=== PATIENT | female | born 1975 | race Caucasian/White ===

== ENCOUNTER 2017-04-15 14:30 | Emergency (ER) | payer SELFPAY ==
--- NOTE | 2017-04-15 16:07 | ER Document Report ---
ED Medical Screen (RME) - General Chief Complaint: Headache Stated Complaint: HEADACHE Time Seen by Provider: 04/15/17 15:52 Mode of Arrival: Ambulatory Information source: Patient Notes: Pt has hard "balls" to the left side of her neck that hurt that popped up a few days ago. 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 no fever/chills, sick symptoms otherwise TRAVEL OUTSIDE OF THE [place] IN LAST 30 DAYS: No - Related Data Allergies/Adverse Reactions: Penicillins Allergy (Intermediate, Verified 04/15/17 14:31) Rash Past Medical History - General Information source: Patient - Past Medical History Cardiac Medical History: Denies: Hx Coronary Artery Disease, Hx Heart Attack, Hx Hypertension, Hx Pulmonary Embolism Pulmonary Medical History: Reports: Hx Asthma, Hx Bronchitis - Denies: Hx COPD, Hx Pneumonia, Hx Respiratory Failure, Hx Sleep Apnea, Hx Tuberculosis Neurological Medical History: Denies: Hx Cerebrovascular Accident, Hx Seizures Renal/ Medical History: Reports: Hx Ovarian Cysts - on left ovary. Denies: Hx End Stage Renal Disease, Hx Kidney Stones, Hx Peritoneal Dialysis, Hx Pelvic Inflammatory Disease Malignancy Medical History: Reports: Hx Cervical Cancer - did LEEP procedure. Denies: Hx Breast Cancer, Hx Lung Cancer, Hx Ovarian Cancer GI Medical History: Reports: Hx Gastroesophageal Reflux Disease. Denies: Hx Crohn's Disease, Hx Hiatal Hernia, Hx Irritable Bowel, Hx Liver Failure, Hx Pancreatitis, Hx Ulcer Musculoskeltal Medical History: Denies Hx Arthritis Psychiatric Medical History: Reports: Hx Depression, Hx Post Traumatic Stress Disorder - childhood trauma Denies: Hx Bipolar Disorder, Hx Schizophrenia Past Surgical History: Reports: Hx Hysterectomy, Hx Tubal Ligation. Denies: Hx Appendectomy, Hx Bowel Surgery, Hx Section, Hx Cholecystectomy, Hx Colostomy, Hx Coronary Artery Bypass Graft, Hx Gastric Bypass Surgery, Hx Herniorrhaphy, Hx Mastectomy, Hx Pacemaker, Hx Tonsillectomy - Immunizations Hx Diphtheria, Pertussis, Tetanus Vaccination: Yes - 2005 Review of Systems - Review of Systems Gastrointestinal: See HPI Skin: See HPI Physical Exam - Vital signs Vitals: Temp Pulse Resp BP Pulse Ox 99.2 F 86 12 144/92 H 97 04/15/17 14:37 04/15/17 14:37 04/15/17 14:37 04/15/17 14:37 04/15/17 14:37 - Notes Notes: General: NAD Skin: enlarged tender LAD to left neck, post auricular and cervical Course - Vital Signs Vital signs: Temp Pulse Resp BP Pulse Ox 99.2 F 86 12 144/92 H 97 04/15/17 14:37 04/15/17 14:37 04/15/17 14:37 04/15/17 14:37 04/15/17 14:37
[2017-04-15 16:48] LABS: ABSOLUTE EOSINOPHILS # (AUTO) 0.3 10^3/uL (0.0-0.6); ABSOLUTE LYMPHOCYTES (AUTO) 2.2 10^3/uL (0.5-4.7); ABSOLUTE MONOCYTES (AUTO) 0.5 10^3/uL (0.1-1.4); ABSOLUTE NEUT (AUTO) 5.3 10^3/uL (1.7-8.2); BASOPHILS % (AUTO) 0.6 % (0-2); EOSINOPHILS % (AUTO) 3.2 % (0-6); HEMATOCRIT 43.1 % (36.0-47.0); HEMOGLOBIN 14.8 g/dL (12.0-15.5); LYMPHOCYTES % (AUTO) 26.7 % (13-45); MEAN CORPUSCULAR HEMOGLOBIN 31.9 pg (27.0-33.4); MEAN CORPUSCULAR HGB CONC 34.3 g/dL (32.0-36.0); MEAN CORPUSCULAR VOLUME 93 fl (80-97); MONOCYTES % (AUTO) 5.5 % (3-13); PLATELET COUNT 284 10^3/uL (150-450); RED BLOOD COUNT 4.63 10^6/uL (3.72-5.28); RED CELL DISTRIBUTION WIDTH 13.3 % (11.5-14.0); TOTAL CELLS COUNTED % (AUTO) 100 %; WHITE BLOOD COUNT 8.4 10^3/uL (4.0-10.5)
[2017-04-15 16:57] LABS: APPEARANCE,URINE CLEAR; BILIRUBIN,URINE NEGATIVE (NEGATIVE); COLOR,URINE STRAW; GLUCOSE, URINE NEGATIVE (NEGATIVE); KETONES,URINE NEGATIVE (NEGATIVE); LEUKOCYTE ESTERASE,URINE NEGATIVE (NEGATIVE); NITRITE,URINE NEGATIVE (NEGATIVE); PROTEIN,URINE NEGATIVE (NEGATIVE); URINE SPECIFIC GRAVITY 1.004; UROBILINOGEN,URINE NEGATIVE mg/dL (<2.0)
[2017-04-15 17:07] LABS: ALANINE AMINOTRANSFERASE 19 U/L (9-52); ALBUMIN 4.8 g/dL (3.5-5.0); ALKALINE PHOSPHATASE 54 U/L (38-126); ANION GAP 13 (5-19); ASPARTATE AMINO TRANSFERASE 14 U/L (14-36); BILIRUBIN,DIRECT 0.3 mg/dL (0.0-0.4); BILIRUBIN,TOTAL 0.3 mg/dL (0.2-1.3); BLOOD UREA NITROGEN 9 mg/dL (7-20); CALCIUM 10.1 mg/dL (8.4-10.2); CARBON DIOXIDE 25 mmol/L (22-30); CHLORIDE 105 mmol/L (98-107); GLUCOSE 84 mg/dL (75-110); POTASSIUM 3.9 mmol/L (3.6-5.0); SODIUM 142.7 mmol/L (137-145)
--- NOTE | 2017-04-15 18:56 | ER Document Report ---
ED General - General Mode of Arrival: Ambulatory Information source: Patient TRAVEL OUTSIDE OF THE [place] IN LAST 30 DAYS: No <LOLY CHAUDHARI - Last Filed: 04/15/17 18:38> <DYLON PATRICK - Last Filed: 04/15/17 20:13> - General Chief Complaint: Headache Stated Complaint: HEADACHE Time Seen by Provider: 04/15/17 15:52 Notes: Patient is a 42-year-old female who presents to the ER today for 3-4 days of swollen "hard balls" to the left side of her neck that are painful. Patient states that prior to them starting she did have some vomiting around [place] but that that has subsided and she no longer has any nausea or vomiting. She denies that she had any fever, chills or diarrhea during that episode. Patient states that over the past 3-4 months she has not had any type of appetite and has lost some weight. She does not know how much weight she is lost. She also states that she recently had a melanoma removed from her right upper back. She has no other history of cancer or immune deficiencies. She denies cough, runny nose or other sick symptoms at this time. (LOLY CHAUDHARI) - Related Data Allergies/Adverse Reactions: Penicillins Allergy (Intermediate, Verified 04/15/17 14:31) Rash Past Medical History - General Information source: Patient - Social History Smoking Status: Current Every Day Smoker Chew tobacco use (# tins/day): No Frequency of alcohol use: Rare Drug Abuse: None Family History: Reviewed & Not Pertinent Patient has suicidal ideation: No Patient has homicidal ideation: No - Past Medical History Cardiac Medical History: Denies: Hx Coronary Artery Disease, Hx Heart Attack, Hx Hypertension, Hx Pulmonary Embolism Pulmonary Medical History: Reports: Hx Asthma, Hx Bronchitis - '09 Denies: Hx COPD, Hx Pneumonia, Hx Respiratory Failure, Hx Sleep Apnea, Hx Tuberculosis Neurological Medical History: Denies: Hx Cerebrovascular Accident, Hx Seizures Renal/ Medical History: Reports: Hx Ovarian Cysts - on left ovary. Denies: Hx End Stage Renal Disease, Hx Kidney Stones, Hx Peritoneal Dialysis, Hx Pelvic Inflammatory Disease Malignancy Medical History: Reports: Hx Cervical Cancer - '04 did LEEP procedure. Denies: Hx Breast Cancer, Hx Lung Cancer, Hx Ovarian Cancer GI Medical History: Reports: Hx Gastroesophageal Reflux Disease. Denies: Hx Crohn's Disease, Hx Hiatal Hernia, Hx Irritable Bowel, Hx Liver Failure, Hx Pancreatitis, Hx Ulcer Musculoskeltal Medical History: Denies Hx Arthritis Psychiatric Medical History: Reports: Hx Depression, Hx Post Traumatic Stress Disorder - childhood trauma Denies: Hx Bipolar Disorder, Hx Schizophrenia Past Surgical History: Reports: Hx Hysterectomy, Hx Tubal Ligation. Denies: Hx Appendectomy, Hx Bowel Surgery, Hx Section, Hx Cholecystectomy, Hx Colostomy, Hx Coronary Artery Bypass Graft, Hx Gastric Bypass Surgery, Hx Herniorrhaphy, Hx Mastectomy, Hx Pacemaker, Hx Tonsillectomy - Immunizations Hx Diphtheria, Pertussis, Tetanus Vaccination: Yes - 2006 <LOLY CHAUDHARI - Last Filed: 04/15/17 18:38> Physical Exam <LOLY CHAUDHARI - Last Filed: 04/15/17 18:38> <DYLON PATRICK - Last Filed: 04/15/17 20:13> - Vital signs Vitals: Temp Pulse Resp BP Pulse Ox 99.2 F 86 12 144/92 H 97 04/15/17 14:37 04/15/17 14:37 04/15/17 14:37 04/15/17 14:37 04/15/17 14:37 - Notes Notes: PHYSICAL EXAMINATION: GENERAL: Well-appearing and in no acute distress. HEAD: Atraumatic, normocephalic. EYES: Pupils equal round and reactive to light, extraocular movements intact, sclera anicteric, conjunctiva are normal. ENT: ear canals without erythema or foreign body, TMs pearly amaro with good bony landmarks, nares patent, oropharynx clear without exudates. Moist mucous membranes. NECK: Normal range of motion, supple with postauricular, posterior cervical lymphadenopathy, tender to palpation LUNGS: CTAB and equal. No wheezes rales or rhonchi. HEART: Regular rate and rhythm without murmurs EXTREMITIES: Normal range of motion, no pitting edema. No cyanosis. NEUROLOGICAL: Cranial nerves grossly intact. Normal sensory/motor exams. PSYCH: Normal mood, normal affect. SKIN: Warm, Dry, normal turgor, no rashes or lesions noted (LOLY CHAUDHARI) Course - Laboratory Result Diagrams: 04/15/17 16:14 04/15/17 16:14 <LOLY CHAUDHARI - Last Filed: 04/15/17 18:38> - Laboratory Result Diagrams: 04/15/17 16:14 04/15/17 16:14 <DYLON PATRICK - Last Filed: 04/15/17 20:13> - Re-evaluation Re-evalutation: 04/15/17 18:55 Patient has normal lab work today with a normal white blood cell count. Patient is very concerned about why she has lymphadenopathy. CT soft tissue neck has been ordered at this time, but pt has not gone yet. Care will be handed over to Dylon Patrick PA-C to follow up on CT. (LOLY CHAUDHARI) 04/15/17 20:10 CT scan was unremarkable for any acute pathology, was possible suggestion of goiter. Recommend further evaluation with PCM with thyroid testing as well. Patient states that she is ready to go home. Patient is discharged in stable condition. Patient to monitor symptoms and return with any worsening symptoms. Recheck with your PCM in 3-5 days. (DYLON PATRICK) - Vital Signs Vital signs: Temp Pulse Resp BP Pulse Ox 98.5 F 70 16 141/98 H 99 04/15/17 19:09 04/15/17 19:09 04/15/17 19:09 04/15/17 19:09 04/15/17 19:09 Discharge <LOLY CHAUDHARI - Last Filed: 04/15/17 18:38> <DYLON PATRICK - Last Filed: 04/15/17 20:13> - Discharge Clinical Impression: LAD (lymphadenopathy) of left cervical region, Goiter Condition: Stable Disposition: HOME, SELF-CARE Additional Instructions: OTC meds as needed Tylenol/ibuprofen as needed Recheck with your PCM in 3-5 days for further evaluation and consideration of thyroid testing Consider consult with ENT Return to the ED with any worsening symptoms and/or development of fever, headache, chest pain, palpitations, syncope, shortness of breath, trouble breathing, abdominal pain, n/v/d, blood in stool/urine, loss of control of bowel /bladder, urinary retention, muscle weakness/paralysis, saddle anesthesia, numbness/tingling, or other worsening symptoms that are concerning to you. Forms: Elevated Blood Pressure Referrals: ANCA FIGUEROA DO [ASSOCIATE] - Follow up as needed
--- NOTE | 2017-04-15 19:11 | RADIOLOGY REPORT (SQ) ---
EXAM DESCRIPTION: CT SOFT TISSUE NECK WITH COMPLETED DATE/TIME: 04/15/2017 6:58 pm REASON FOR STUDY: edema left neck COMPARISON: None. TECHNIQUE: Post IV contrasted scanning from skull base through lung apices with review of bone, soft tissue and lung windows. Reconstructed coronal and sagittal MPR images reviewed. All images stored on PACS. All CT scanners at this facility use dose modulation, iterative reconstruction, and/or weight based d osing when appropriate to reduce radiation dose to as low as reasonably achievable (ALARA). [facility]: Dose Right [facility]: CareDose [facility]: Dose Right [facility]: Teradose 4D [facility]: [employer] CONTRAST TYPE AND DOSE: contrast/concentration: Isovue 370.00 mg/ml; Total Contrast Delivered: 75.0 ml; Total Saline Delivered: 25.2 ml RENAL FUNCTION: None required. The patient is less than 50 years old. RADIATION DOSE: CT Rad equipment meets quality standard of care and radiation dose reduction techniq ues were employed. CTDIvol: 11.8 mGy. DLP: 408 mGy-cm. . LIMITATIONS: None. FINDINGS: SKULL BASE: Intact. MAJOR SALIVARY GLANDS: No solid or cystic masses. No inflammatory changes. LYMPHADENOPATHY: No adenopathy. MUCOSAL MASSES OR ASYMMETRY: No mucosal masses or asymmetry. LARYNX/CORDS: No abnormal findings. VASCULAR STRUCTURES: The major vessels are patent. LUNG APICES: Clear. BONES: Intact. THYROID: Enlarged somewhat nodular appearance with substernal right thyroid extension, mild. PARANASAL SINUSES: Clear. OTHER: No other significant finding. IMPRESSION: 1. 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 2. No neck mass or adenopathy. Major a rterial and venous structures look patent. TECHNICAL DOCUMENTATION: JOB ID: [id number] Quality ID # [id number]: Final reports with documentation of one or more dose reduction techniques (e.g., Au tomated exposure control, adjustment of the mA and/or kV according to patient size, use of iterative reconstruction technique) 2010 [employer]- All Rights Reserved
[2017-04-15 20:21] VITALS: BP 132/94
== END 2017-04-15 20:21 | disposition home or self-care (01) ==
LOC: ER 14:30
DX: E04.9 Nontoxic goiter, unspecified (principal); R59.0 Localized enlarged lymph nodes; R63.0 Anorexia; J45.909 Unspecified asthma, uncomplicated; F17.200 Nicotine dependence, unspecified, uncomplicated; Z85.820 Personal history of malignant melanoma of skin; Z85.41 Personal history of malignant neoplasm of cervix uteri; Z88.0 Allergy status to penicillin
CPT/HCPCS: 36415; 70491; 80053; 81001; 85025; 99284